=== PATIENT | female | born 1950 | race Caucasian/White ===

== ENCOUNTER → 2017-12-07 12:47 | Outpatient (CLI) | payer MEDICARE, SELFPAY | PROVIDERS: Family Provider Family Medicine; PCP Family Medicine; Visit Provider Nurse Practitioner Women's Health | DX: Z12.31 Encounter for screening mammogram for malignant neoplasm of breast (principal) | CPT/HCPCS: 77063; 77067 ==

== ENCOUNTER → 2019-03-12 10:37 | Outpatient (CLI) | payer MEDICARE, SELFPAY ==
[2017-12-07 09:09] VITALS: BMI 25.0
--- NOTE | 2019-03-12 10:40 | BI_ITS ---
MAMMOGRAPHY - BILATERAL SCREENING 3-D TOMOSYNTHESIS REASON FOR EXAM: Female, 68 years old. Annual routine screening examination. PERTINENT HISTORY: Left stereotactic biopsy for calcifications over 15 years ago. TECHNIQUE: 2-D mammograms and 3-D Tomosynthesis of the breast (s) were performed. CAD was performed. COMPARISON: December 07, 2017 FINDINGS: The breast composition is almost entirely fat. Scattered benign calcifications are seen. No dense spiculated masses or suspicious microcalcifications are identified. No architectural distortion is identified. There is no skin thickening or retraction. Stable lymph nodes in both axillae. There has been no significant change since the prior study. BI/SCREEN MAMM (CAD) W/DAE BILAT IMPRESSION: No mammographic signs of malignancy. Routine yearly mammograms recommended. ASSESSMENT CATEGORY: BIRADS Category 2: Benign. A letter regarding these results will be sent to the patient by the facility within 30 days. FOLLOW UP RECOMMENDATION: Yearly follow up mammogram recommended. (A) Approximately 10% of breast cancers are not detected by mammography. A normal mammogram should not delay biopsy of a clinically suspicious abnormality. Electronically Signed: Kristopher Toledo MD at 10:38 EST , Service support ,
== END ==
PROVIDERS: Family Provider Family Medicine; PCP Family Medicine; Referring Provider Nurse Practitioner Women's Health; Visit Provider Nurse Practitioner Women's Health
DX: Z12.31 Encounter for screening mammogram for malignant neoplasm of breast (principal)
CPT/HCPCS: 77063; 77067

== ENCOUNTER 2023-10-12 15:04 | Emergency (ER) | payer MEDICARE, SELFPAY ==
[2023-10-12 15:05] VITALS: BP 179/101; PULSE 103; RESP 22; TEMP 36.2; O2SAT 98
--- NOTE | 2023-10-12 15:26 | ED.RN ---
NO OLD EKGS
--- NOTE | 2023-10-12 15:28 | EKG12_ITS ---
Test Reason : CP Blood Pressure : / mmHG Vent. Rate : 087 BPM Atrial Rate : 087 BPM P-R Int : 152 ms QRS Dur : 072 ms QT Int : 350 ms P-R-T Axes : 067 -20 069 degrees QTc Int : 421 ms Normal sinus rhythm Cannot rule out Septal infarct , age undetermined Abnormal ECG Confirmed by Mitch Lorenzana ([id number]), slot editor KHADRA HOOD ([id number]) on 10/13/2023 11:11:52 AM Referred By: Confirmed By:Mitch Lorenzana
--- NOTE | 2023-10-12 15:28 | ED.VIS.CHEST ---
HPI History of Present Illness Chief Complaint: Chest Pain Detail of Chief Complaint: Chest pain Informant: patient Narrative Narrative: Patient presents with chest pain that started about 20 minutes ago. Patient states that she was not doing anything exertional she just got up. Describes a sharp stabbing pain behind her left breast that radiated at times to her left shoulder blade. Denies nausea or vomiting. Denies lightheadedness or dizziness. She has had similar pains in the past but usually resolve in short order in and she is able to take a deep breath. Pain is made worse by breathing. She denies recent travel or surgery. No heart history. No family history of heart disease. No history of PE or DVT. [facility] Medical History (Updated 10/12/23 @ 18:[address] Triny Shane, DO) Hypertension Home Medications ?Medication ?Instructions ?Recorded ?Last Taken ?Type cholecalciferol (vitamin D3) 25 unit PO 12/07/17 Unknown History mcg/drop (1,000 unit/drop) oral drops lisinopril 5 mg tablet 5 mg PO QDAY 12/07/17 Unknown History ubiquinol 200 mg-B12 5 mg-folic cap PO 12/07/17 Unknown History acid 0.8 mg-resveratrol 400 mg capsule Allergy/AdvReac Type Severity Reaction Status Date / Time No Known Allergies Allergy Verified 03/12/19 11:11 Family History Mother CVA (cerebral vascular accident) Diabetes Father CVA (cerebral vascular accident) Social History (Updated 03/12/19 @ 12:15 by Andressa Rodriguez NP, NEONATAL NURSE PRACTITIONER-C) Smoking Status: Never smoker alcohol intake: never substance use type: does not use caffeine: Yes what type of physical activity do you participate in: walking frequency: 3-4 times per week seatbelt use: always do you feel safe at home: Yes additional social history: [employer] Patient is retired ROS ROS ED Review of Systems ROS Unobtainable: other Constitutional Constitutional ED: Reports lethargy; Denies chills, fever(s), sweats or weight loss Eyes Eyes: Denies blurry vision, change in vision or diplopia ENT ENT ED: Denies rhinorrhea or sore throat Cardiovascular Cardiovascular: Reports chest pain; Denies orthopnea or racing heartbeat Respiratory/Chest Respiratory/Chest: Denies cough, dyspnea, dyspnea on exertion, orthopnea or sputum Gastrointestinal Gastrointestinal: Denies abdominal pain, diarrhea, nausea or vomiting Genitourinary Genitourinary ED: Denies dysuria, hematuria or urinary frequency Musculoskeletal Musculoskeletal: Denies arthralgias, back pain, myalgias or neck pain Integumentary Denies abscess, Abrasions or rash Neurologic Neurologic: Denies headache(s) or weakness Psychiatric Psychiatric: Denies anxiety, depression or suicidal thoughts Endocrine Endocrinology: Denies polydipsia, polyphagia or polyuria Hematologic/Lymphatic Hematologic/Lymphatic: Denies easy bleeding, easy bruising or lymphadenopathy Allergic/Immunologic Allergic/Immunologic ED: Denies mouth swelling, tongue swelling or urticaria EXAM Physical Exam Const Vital Signs: 10/12/23 15:05 10/12/23 15:06 10/12/23 15:28 Temperature 97.2 F L Temperature Source Temporal Pulse Rate 103 H Respiratory Rate 22 H Respiratory Effort Normal Non-Labored Blood Pressure 179/101 H Blood Pressure Mean 127 Pulse Ox 98 Oxygen Delivery Method Room Air Room Air 10/12/23 16:04 10/12/23 17:00 10/12/23 18:00 Temperature Temperature Source Pulse Rate 80 83 86 Respiratory Rate 14 21 H 21 H Respiratory Effort Blood Pressure 175/103 H 196/117 H 181/103 H Blood Pressure Mean 127 143 129 Pulse Ox 94 96 95 Oxygen Delivery Method Room Air Room Air Room Air Positive well nourished and well developed General Appearance ED: well developed and NAD HEENT Reports TM's clear and moist mucous membranes normocephalic and atraumatic; Negative for trauma or tenderness Tympanic Membrane ED: Yes TM's clear Eyes PERRL and EOMs intact bilaterally General Eye ED: Negative for pale conjunctiva or scleral icterus Neck no lymphadenopathy, supple and no JVD General: Negative for tenderness Chest Wall inspection of chest normal and palpation of chest normal Chest: Negative for tenderness Resp normal respiratory effort and clear to auscultation bilaterally Effort and Inspection: Negative for respiratory distress or pain with movement Auscultation: Negative for rhonchi, wheezes or diminished lung sounds Cardio regular rate, regular rhythm, S1 normal heart sound, S2 normal heart sound and no murmurs Peripheral Pulses: pulses 2+ throughout GI normal to inspection, nondistended, normoactive bowel sounds, soft to palpation, non-tender, non-distended and no masses Back/Spine no CVA tenderness and no thoracic nor lumbar tenderness Extremity normal to inspection General Extremety ED: Negative for edema General Extremity: Negative for edema Neuro oriented x3, CN's II-XII intact bilaterally, no sensory deficits noted and gait normal Sensorium / Orientation: awake, alert, oriented to person, oriented to place and oriented to time Motor Exam: strength 5/5 throughout and strength abnormal Psych mental status grossly normal Skin no rashes or lesions noted and no wounds Heart Score History: Slightly/Non-Suspicious ECG: Normal Age: >/= 65 years Risk Factors: 1 or 2 Risk Factors Troponin: </= Normal Limit Score: 3 MDM MDM MDM Narrative Medical decision making narrative: Patient presents emergency department chest pain as sharp and stabbing worse with breathing. In the differential would be PE versus pleurisy versus pneumothorax or infectious process and I suspect less likely cardiac. IV line will be established. EKG obtained on arrival showed a sinus rhythm with ventricular rate of 87 bpm with old septal infarct. Lab workup will be obtained as well as a chest x-ray. CBC with differential recommend 6.5 with hemoglobin 13.8 and platelet count of 252. Chemistries unremarkable. Troponin initial was normal at 5. D-dimer was normal at 0.49. Delta troponin was normal at 5. Patient's pain resolved in the emergency department without treatment and she has not had it for hours. This point low suspicion for acute coronary syndrome. I feel she is low risk. Recommended follow-up with her primary care physician as needed. Patient advised to return if exertional dyspnea, exertional chest pain pressure or heaviness, or condition should worsen anyway. Lab Data Attestation: I reviewed the patient's lab results. Labs: Laboratory Results - last 24 hr 10/12/23 10/12/23 15:25 17:46 WBC 6.5 RBC 4.46 Hgb 13.8 Hct 41.5 MCV 93.0 MCH 30.9 MCHC 33.3 RDW Std Deviation 42.7 RDW Coeff of Monica 12.4 Plt Count 252 MPV 9.4 Immature Gran % (Auto) 0.200 Neut % (Auto) 53.5 Lymph % (Auto) 36.0 [place] % (Auto) 9.1 Eos % (Auto) 0.6 Baso % (Auto) 0.6 Absolute Neuts (auto) 3.5 Absolute Lymphs (auto) 2.32 Nucleated RBC % 0 D-Dimer Quant (PE/DVT) 0.49 Sodium 139 Potassium 4.2 Chloride 106 Carbon Dioxide 29.0 Anion Gap 4 L BUN 18 Creatinine 0.84 Est GFR (MDRD) Af Amer 86 Est GFR (MDRD) Non-Af 71 BUN/Creatinine Ratio 21.6 H Glucose 89 Calcium 9.7 Troponin I High Sens 5 5 Radiography Diagnostic Testing: Clinical Impression(s) from Imaging Studies Chest X-Ray 10/12/23 15:30 IMPRESSION: Mild degree of increased markings at the left lung base suggestive of either linear atelectasis and/or scarring. Electronically Signed: Jayjay Centeno MD at 15:40 EDT , 1 view chest x-ray obtained interpreted by myself as no evidence of infiltrate or pneumothorax or acute disease process. Radiology in agreement. EKG Initial EKG: Attestation: I personally reviewed and interpreted this EKG as follows: Comments: Sinus rhythm with ventricular rate of 87 bpm with old septal infarct Discharge Plan Triage Chief Complaint: Chest Pain ED Provider: Triny Shane Dx/Rx/DC Orders Clinical Impression: Chest pain Instructions: ED Chest Pain, Uncertain Cause Prescriptions: No Action lisinopril 5 mg tablet 5 mg PO QDAY [id number] 200-5-0.8-400 mg capsule PO cholecalciferol (vitamin D3) 1,000 unit/drop drops PO Primary Care Provider: Rhett Live Referrals: Rhett Live MD [Primary Care Provider] - As Needed Print Language: Kazakh Disposition Disposition: Home, Self Care
--- NOTE | 2023-10-12 15:30 | RAD_ITS ---
STUDY: X-RAY CHEST REASON FOR EXAM: Female, 73 years old. Chest pain TECHNIQUE: Single AP portable view of the chest. COMPARISON: None. FINDINGS: EKG electrodes are seen. Mild increased markings at the left lung base suggestive of left basilar atelectasis and/or left basilar scarring. There is no demonstrated pleural abnormality. Normal size heart. Normal mediastinum and miriam. Normal visualized pulmonary arteries. Normal visualized aortic arch and descending thoracic aorta. There are diffuse degenerative changes of the visualized thoracic spine. Dextroscoliosis. Normal visualized ribs, clavicles, and shoulders. There is no demonstrated abnormality of the visualized soft tissue structures of the upper abdomen. RAD/Chest 1 View (Portable) IMPRESSION: Mild degree of increased markings at the left lung base suggestive of either linear atelectasis and/or scarring. Electronically Signed: Jayjay Centeno MD at 15:40 EDT ,
--- NOTE | 2023-10-12 15:30 | ED.RN ---
NO OLD EKGS
[2023-10-12 15:45] LABS: Absolute Lymphocyte Count 2.32 X10^3/uL (0.83-4.51); Absolute Neutrophil Count 3.5 X10^3/uL (2.0-7.7); Basophil# 0.04 X10^3/uL; Basophil% 0.6 % (0-1); Eosinophil# 0.04 X10^3/uL; Eosinophils% 0.6 % (0-5); Hematocrit 41.5 % (37-47); Hemoglobin 13.8 g/dL (12.0-15.0); Lymphocyte # 2.32 X10^3/ul (0.83-4.51); Mean Corp Hgb Conc 33.3 g/dL (32-36); Mean Corpuscular Hgb 30.9 pg (27.0-32.0); Mean Platelet Vol. 9.4 fl (6.2-12.0); Monocyte# 0.59 X10^3/uL; Monocyte% 9.1 % (0-10); NRBC Flagged by Analyzer 0 % (0-5); Neutrophil # 3.45 X10^3/uL (2.7-7.7); Neutrophil % 53.5 % (47-70); Platelet Count 252 K/mm3 (150-450); RBC Distribution Width CV 12.4 % (11.6-14.6); RBC Distribution Width SD 42.7 fl (35.1-43.9); Red Blood Count 4.46 M/mm3 (4.2-5.4); White Blood Count 6.5 K/mm3 (4.4-11.0)
[2023-10-12] MEDS: 0.9% Normal Saline (1000mL) 1,000 ML 150 ML IV (15:46)
[2023-10-12 15:57] LABS: D-Dimer Quantitative (DVT/PE) 0.49 FEU/ug/m (0.27-0.49)
[2023-10-12 16:04] VITALS: BP 175/103; PULSE 80; RESP 14; O2SAT 94
[2023-10-12 16:09] LABS: Anion Gap 4 (5-15); BUN 18 mg/dL (7-18); BUN/Creat Ratio 21.6 RATIO (10-20); Calcium,Total 9.7 mg/dL (8.5-10.1); Chloride 106 mmol/L (98-107); Creatinine, Serum 0.84 mg/dL (0.55-1.02); EST Glomerular Filtration Rate 71 mL/min (>60); Est Glom Filt Rate - Afr Amer 86 mL/min (>60); Glucose 89 mg/dL (74-106); Potassium 4.2 mmol/L (3.5-5.1); Sodium Level 139 mmol/L (136-145); Troponin-I HS (w/2H Reflex) 5 pg/mL (3.0-54.0)
[2023-10-12 17:00] VITALS: BP 196/117; PULSE 83; RESP 21; O2SAT 96
[2023-10-12 17:37] LABS: Reflex Troponin-HS? (from REC) Y
[2023-10-12 18:00] VITALS: BP 181/103; PULSE 86; RESP 21; O2SAT 95
[2023-10-12 18:12] LABS: Troponin-I HS 5 pg/mL (3.0-54.0)
[2023-10-12 18:38] VITALS: BP 181/103; PULSE 86; RESP 21; TEMP 36.3; O2SAT 95
== END 2023-10-12 18:39 | disposition home or self-care (01) ==
PROVIDERS: Emergency Provider Emergency Medicine; PCP Family Medicine; Visit Provider Emergency Medicine
DX: R07.9 Chest pain, unspecified (principal)
CPT/HCPCS: 71045; 80048; 84484; 85025; 85379; 93005; 99283; J7030; A4216